=== PATIENT | female | born 1935 | race Caucasian/White ===

== ENCOUNTER 2017-05-27 07:30 | Day surgery (SDC) | payer MEDICARE, OTHER ==
--- NOTE | 2017-05-19 15:14 | HP ---
CC: Dr. Valdes from [facility] * HISTORY AND PHYSICAL: DATE OF VISIT/ENCOUNTER: 05/19/17 DATE OF SURGERY: 05/27/17 - [facility] CHIEF COMPLAINT: History of gallbladder disease and right upper quadrant abdominal pain. ATTENDING PHYSICIAN: Vicki Winters MD. (DICTATED BY JESS HAMILTON) HISTORY OF PRESENT ILLNESS: Ms. Ivan is a pleasant 81-year-old female who returned to the office today to discuss gallbladder surgery. The patient unfortunately had an acute attack of cholecystitis back in February of this year while her was hospitalized at [facility] due to heart attack. Unfortunately, the patient's eventually and during his hospitalization the patient was staying with him in the hospital in [place] for 2 months and mainly eating meals at their cafeteria. She reports having frequent attacks of right upper quadrant pain back then that has gotten progressively worse to the point she was evaluated at the emergency room in [place] and was found to have acute cholecystitis. The patient eventually was hospitalized and a cholecystotomy tube was inserted and then eventually removed back in mid February. After her , the patient continued to recover well from her recent hospitalization and was seen in the office last month to discuss possible cholecystectomy. The patient initially was seen by Dr. Chong who recommended surgery and then she was seen by Dr. Winters last week for a second opinion regarding the same issue. Given her symptoms in the past couple of months, we discussed with her proceeding with surgery which she eventually agreed upon and was seen in the office today for a preoperative evaluation. Since her last office visit, the patient has been doing relatively well. She denies any significant right upper quadrant abdominal pain, nausea, vomiting, jaundice, or changes in the bowel habits. She has been dealing with some personal issues regarding her 's but overall she has been handling very well and she is ready to proceed with surgery as outlined. She was seen by her primary care physician last week and she was deemed not needing any medical clearance. She also had some laboratory workup done the week before that and all her lab results appear to be satisfactory at this time. PAST MEDICAL HISTORY: Significant for history of renal cell carcinoma for which she had right nephrectomy in 2014 in [facility]. She also has a history of hypothyroidism, osteoarthritis, hyperlipidemia, anxiety, and as mentioned above history of acute cholecystitis that required cholecystotomy tube insertion back in January of this year. PAST SURGICAL HISTORY: Significant for hysterectomy back in 1988, hip replacement back in 2009 as well as right nephrectomy in 2015 due to history of renal cell carcinoma. She also has a history of cholecystotomy tube insertion earlier this year due to acute attack of cholecystitis. CURRENT MEDICATIONS: Include, levothyroxine 25 mcg 1-1/2 tablet p.o. daily. ALLERGIES: She is allergic to CODEINE, HYDROCODONE, IBUPROFEN, OXYCODONE, TETRACYCLINE, TERRAMYCIN, and PENICILLIN G. FAMILY HISTORY: She denies any family history of gallbladder disease. SOCIAL HISTORY: The patient is a . She lives alone. She is retired, very active in voluntary activities in the community. She has never smoked. She denies alcohol use and caffeine intake is minimal. REVIEW OF SYSTEMS: See HPI, otherwise negative. She denies any headache, dizziness, blurred vision, or double vision. No sore throat, shortness of breath, cough, or wheezing. No chest pain, palpitations, or dyspnea. She reports occasional lower back pain and arthritic aches and pains in her joint, but denies any dysuria, flank pain, hematuria, or urinary frequency. She admits to occasional right upper quadrant discomfort after food consumption, but denies any nausea, vomiting, changes in bowel habit, or changes in the color or stool of urine. No fever, chills, night sweats, or recent weight loss. PHYSICAL EXAMINATION GENERAL: She is a pleasant and healthy-appearing elderly female in no acute distress or discomfort at the time of her visit. VITALS: Revealed a blood pressure of 100/62, pulse of 80, respiration of 16, temperature of 98.3, and she weighs 148 pounds on a 5 feet 4 inches with BMI of 25. HEENT: Sclerae anicteric. PERRLA. EOMs intact. Oropharynx is pink and moist. There was no exudate. NECK: Supple. Trachea midline. No cervical adenopathy or thyromegaly. LUNGS: Clear to auscultation bilaterally. No rales, wheezing, or rhonchi noted. HEART: Regular, rate, and rhythm. Normal S1 and S2 without rubs, murmurs, or gallops. BACK: Normal curvature, no CVA tenderness. ABDOMEN: Soft, nontender, and nondistended. Old incisions at right upper quadrant from prior nephrectomy and cholecystotomy tube insertion were noted and well healed. There was no evidence of incisional hernias, masses, or lesions. No hepatosplenomegaly noted. Elliott sign was negative. EXTREMITIES: Without cyanosis, clubbing, or edema. RECTAL: Deferred at this time. NEUROLOGIC: Grossly intact. LABORATORY WORKUP: The patient had annual laboratory workup done 2 weeks ago and her CBC showed white count of 7200, hemoglobin 13.1, hematocrit 39.2, and platelets of 237. Her metabolic panel revealed sodium of 135, potassium 4.5, chloride 101, CO2 of 23, albumin 4.1, BUN 14, creatinine 1.0, and glucose of 90. Her LFTs and alk phos were essentially within normal limits and her TSH was 3.32. IMPRESSION: An elderly female with recent history of acute cholecystitis requiring cholecystotomy tube insertion and prolonged IV antibiotics who appeared to be recovering well from this episode and was seen in the office today to discuss elective cholecystectomy at a later date. PLAN/RECOMMENDATIONS: We went on and discussed with the patient proceeding a laparoscopic cholecystectomy. Surgery is scheduled to be performed by Dr. Winters on 05/27/17. The rationale, indications, risks, and benefits of surgery were discussed with her today. Risks include but not limited to infection, bleeding, or injury to adjacent structures. She also understands the risk of converting to open technique given her history of nephrectomy on the same slide and a possibility of multiple intraabdominal adhesions. She is relatively healthy for her age and was seen by her primary care physician a week prior to her office visit and she seems to have no need for medical clearance and her labs are updated at this time. I will obtain an EKG during her preadmission testing and will proceed with surgery as outlined next Tuesday. All her questions were answered and the patient was seen by Dr. Winters as well and we will plan to follow her up accordingly after surgery. JESS HAMILTON [id number]/[facility] #: [id number] JULIET
[~2017-05-27 07:30] MED LIST: Buffered Lidocaine 0.9% SYRIN* 5 ML/SYR SYRINGE INTRADERM ONE; Famotidine IV* 10 MG/ML 2 ML (20 mg) IV ONE; HYDROcodone/ACETAMIN 5-325 MG* 1 TAB PO PRN; Morphine INJ* 2 MG/ML 1 ML SYRINGE IV PRN; PROCHLORPERAZINE INJ 5 MG/ML 2 ML VIAL IV PRN; fentaNYL* 50 MCG/ML 2 ML VIAL (100 MCG VIAL) IV PRN
[2017-05-27] MEDS ORDERED: Buffered Lidocaine 0.9% SYRIN* 5 ML/SYR SYRINGE ONE (07:49)
[2017-05-27] MEDS ORDERED: Clindamycin 900 MG IVPREMIX(* 900 MG/50 ML SDV IV ONE (07:49)
[2017-05-27] MEDS ORDERED: Heparin VIAL(*) 5000 UNITS/ML VIAL (FIVE THOUSAND) ONE (07:49)
[2017-05-27] MEDS ORDERED: Famotidine IV* 10 MG/ML 2 ML (20 mg) ONE (07:49)
[2017-05-27] MEDS ORDERED: Bupivacaine 0.25% EPI 200,000* 30 ML SDV ONE (08:00)
[2017-05-27] MEDS ORDERED: fentaNYL* 50 MCG/ML 2 ML VIAL (100 MCG VIAL) ONE (08:40)
[2017-05-27] MEDS ORDERED: Atracurium* 10 MG/ML 10 ML VIAL ONE (08:41)
[2017-05-27] MEDS ORDERED: Midazolam* 1 MG/ML 2 ML VIAL (2 MG) ONE (08:41)
[2017-05-27] MEDS ORDERED: KETAMINE HCL* 50 MG/ML 10 ML VIAL ONE (08:41)
[2017-05-27] MEDS ORDERED: Propofol* 10 MG/ML 20 ML BTL IV PUSH ONE (09:19)
[2017-05-27] MEDS ORDERED: Ondansetron INJ* 2 MG/ML VIAL ONE (09:19)
[2017-05-27] MEDS ORDERED: Glycopyrrolate IV* 0.2 MG/ML 1 ML VIAL ONE (09:19)
[2017-05-27] MEDS ORDERED: Phenylephrine INJ* 10 MG/ML 1 ML VIAL (10 MG) ONE (09:19)
[2017-05-27] MEDS ORDERED: Lidocaine 2% PF * 5 ML VIAL ONE (09:19)
[2017-05-27] MEDS ORDERED: Dexamethasone IV* 4 MG/ML 1 ML (4 MG) ONE (09:19)
[2017-05-27] MEDS ORDERED: Neostigmine Methylsulfate* 2 MG/2 ML SYRINGE ONE (09:19)
[2017-05-27] MEDS ORDERED: Morphine INJ* 10 MG/ML 1 ML SYRINGE ONE (09:55)
[2017-05-27] MEDS ORDERED: ACETAMINOPHEN IVPB ONE (09:59)
[2017-05-27] MEDS ORDERED: Metoprolol Tartrate IV* 1 MG/ML 5 ML VIAL ONE (10:12)
--- NOTE | 2017-05-27 10:39 | SURGPN ---
Brief Operative Note - Surgery Procedures: 05/27/17 Op Note Pre-op dx: chronic cholecystitis Post-op dx: same Procedure: laparoscopic cholecystectomy Surgeon: Singh Asst: Manisha Anesth: general EBL: 25 cc Complications: none Abx: given pre-op SCDs on during surgery Pt. tolerated procedure well and was transferred to in a stable condition. CLFoster
[2017-05-27] MEDS ORDERED: Acetaminophen IV 1GM/100ML * 100 ML ONE (10:47)
[2017-05-27 13:00] VITALS: BP 106/53
[2017-05-27] MEDS ORDERED: PROCHLORPERAZINE INJ 5 MG/ML 2 ML VIAL ONE (13:09)
--- NOTE | 2017-05-28 13:42 | OP ---
CC: [facility]; Dr. Andre Valdes OPERATIVE REPORT: DATE OF OPERATION: 05/27/17 DATE OF : 37 SURGEON: Vicki Winters MD. CHEESE GRADER: Missy Dyer NP PRE-OP DIAGNOSIS: Cholecystitis. POST-OP DIAGNOSIS: Cholecystitis. OPERATIVE PROCEDURE: Laparoscopic cholecystectomy. INDICATIONS: Ms. Ivan is an 81-year-old woman who has had recent episodes of cholecystitis, at one point requiring cholecystostomy tube placement and she is now ready to consider definitive surgi rickey intervention. DESCRIPTION OF PROCEDURE: She was prepared for surgery and brought to the operating room. She was placed on the OR table in a supine position and given general anesthesia. The abdomen was then prep ped and draped in the usual sterile fashion. After infiltrating with local anesthetic, an infraumbi lical incision was made and subcutaneous tissue was divided bluntly. The fascia was grasped and inc ised and a 0 Biosyn stitch was placed on either side of the fascial incision. A trocar was inserted into the abdomen and the abdomen was insufflated under direct visualization. A subxiphoid port was placed after infiltrating with local anesthetic. An instrument through the subxiphoid port was the n used to take down some adhesions of omentum to the anterior abdominal wall. The gallbladder was v isualized and noted to be surrounded with adhesions of primarily omentum. The additional subcostal ports were placed after infiltrating with local anesthetic and under direct visualization. The gall bladder was grasped and elevated over the liver and taking adhesions down from the gallbladder was a ccomplished with primarily blunt dissection, with some electrocautery dissection. Ultimately, this exposed the infundibulum of the gallbladder and the cystic duct was cleared, clipped, and divided. The cystic artery was identified, cleared, clipped, and divided, and then the gallbladder was taken down from the liver bed using electrocautery. An additional tubular structure, thought to be possib ly a branch of the cystic artery was identified and clipped and divided also. This may have been si mply more adhesions. Once the gallbladder was off the liver bed, it was withdrawn from the abdomen through the subxiphoid port site and handed off as a specimen. The abdomen was then irrigated with saline and under direct visualization the ports were removed and the previously placed 0 Biosyn was used to closed the fascia of the infraumbilical incision. 4-0 Biosyn was used to close the skin of all incisions. Steri-Strips and a dry sterile dressing were applied. All sponge and instrument cou nts were correct. The patient tolerated the procedure well and was transferred to Recovery in a sta ble condition. [id number]/[facility] #: [id number]
== END 2017-05-27 13:25 | disposition home or self-care (01) ==
LOC: OR 07:30
PROVIDERS: ATTEND Surgery
DX: K80.12 Calculus of gallbladder with acute and chronic cholecystitis without obstruction (principal); Z85.528 Personal history of other malignant neoplasm of kidney; E03.9 Hypothyroidism, unspecified; M19.90 Unspecified osteoarthritis, unspecified site; E78.5 Hyperlipidemia, unspecified
CPT/HCPCS: 88304; A9270-GY; J0780; J1100; J1644; J2250; J2270; J2405; J2704; J3010

== ENCOUNTER 2019-05-29 15:20 | Emergency (ER) | payer MEDICARE, OTHER ==
--- OUTSIDE RECORDS SUMMARY | 2019-05-29 15:26 | XMS REPORT | Continuity of Care Document ---
:1935 External Reference #:[id number] Author Name Leticia Wen O.D. Address [address] [place] [address] Care Team Providers Name Role Phone Andre aVldes M.D. Primary Care Physician Unavailable Payers Date Identification Numbers Payment Provider Subscriber Policy Number: [id number] Medicare - [facility] Esther Ivan PayID: [id number] [address] [place] [address] Policy Number: [id number] [email or web address] Esther Ivan PayID: [id number] [address] [place] [address] Problems Active Problems Provider Date Seasonal allergy Onset: Basal cell carcinoma of skin Onset: Squamous blepharitis Raghav Hernandez M.D. Onset: 03/19/2016 Nuclear senile cataract Raghav Hernandez M.D. Onset: 03/19/2016 Chronic allergic conjunctivitis Raghav Hernandez M.D. Onset: 05/04/2018 Tear film insufficiency Raghav Hernandez M.D. Onset: 11/02/2018 Angular blepharoconjunctivitis Leticia Wen O.D. Onset: 02/05/2019 Pain in eye Leticia Wen O.D. 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 [employer] Work Status Part-Time Employment ETOH Use Denies alcohol use Tobacco Use Start: Unknown Patient has never smoked Recreational Drug Use Denies Drug Use Smoking Status Reviewed: 05/03/19 Patient has never smoked Allergies, Adverse Reactions, Alerts Active Allergies Reaction Severity Comments Date Codeine 03/12/2016 Tetracycline 03/12/2016 Oxycodone 03/19/2016 Penicillins 03/19/2016 Medications Active Medications SIG Qnty Indications Ordering Provider Date Erythromycin apply thin strip 2tubes H10.523 Leticia Venegas 05/03/2019 5mg/GM to all four Behzad O.DKimberly Ointment eyelid margins x every night for 2 weeks Artificial Tears as needed Leticia Venegas 05/02/2019 1.4% Harsha Wen Solution Levothyroxine Sodium Andre Valdes M.DKimberly 25mcg Tablets Multi Vitamin Daily Unknown Tablets History Medications Refresh daily both eyes Raghav Hernandez, 03/18/2016 - 1.4-0.6% Solution M.DKimberly 11/01/2018 Systane Balance Raghav Hernandez, 03/18/2016 - Restorative Formula M.D. 11/01/2018 0.6% Solution Davonte Cantor O.DKimberly - 0.2% Solution 11/01/2017 Triamcinolone Acetonide Tangoren, Ilbrahim - 0.1% A M.DKimberly 05/03/2018 Ointment Ketoconazole Tangoren, Ilbrahim - 2% Shampoo Ashli Wilburn 05/03/2018 Fluorouracil Tangoren, Ilbrahim - 5% Cream A M.DKimberly 05/03/2018 Fluocinonide Tangoren, Ilbrahim - 0.05% Solution A M.DKimberly 05/03/2018 Procedures Date Code Description Status 02/05/2019 40979 Est Patient Intermediate Exam Completed 11/02/2018 24412 Determination Of Refractive State Completed 11/02/2018 09350 Est Patient Comprehensive Exam Completed 05/04/2018 53372 Est Patient Comprehensive Exam Completed 11/03/2017 46301 Est Patient Comprehensive Exam Completed 03/19/2016 85312 New Patient Comprehensive Exam Completed 08/31/2010 31051 Determination Of Refractive State Completed 08/31/2010 34189 New Patient Comprehensive Exam Completed 02/02/2007 516 Cod Liver Oil Tablets Completed 02/02/2007 510 Eye Scrubs 30 Count Completed 02/02/2007 501 Systane PF Eye Drops 28 Count Completed 01/13/2007 91603 Est Patient Intermediate Exam Completed 03/31/2005 89044 Determination Of Refractive State Completed 03/31/2005 58160 Est Patient Comprehensive Exam Completed 03/04/2004 70977 Determination Of Refractive State Completed 03/04/2004 43413 Est Patient Comprehensive Exam Completed Plan of Treatment 05/03/2019 - Leticia Wen O.D.H25.13 Age-related nuclear cataract, bilateralComments:Smoking can increase the risk of developing or worsening any eye related disease, as well as affect your overall health. If you are a smoker , we strongly recommend that you quit.If you are not a smoker, we strongly recommend that you do not start.Follow up:1 Year Follow Up You can expect to have your eyes dilated at your next visit. If Dr. Wen orders any additional testing, it may require extra time. We recommend that you bring sunglasses, as dilation drops often make you light sensitive until they wear off. We always recommend you bring someone to drive you home if you are uncomfortable driving with your eyes dilated. If you have any questions before your next visit, feel free to call our office at .H04.123 Dry eye syndrome of bilateral lacrimal ptlqsoR21.523 Angular blepharoconjunctivitis, bilateralNew Medication:Erythromycin 5 mg/GM - apply thin strip to all four eyelid margins x every night for 2 weeks
[2019-05-29 15:49] VITALS: BP 119/77
--- NOTE | 2019-05-29 16:06 | UC ---
Skin Complaint HPI - HPI Summary HPI Summary: 83 yo female with 4 spots on her lower extr that are intensely pruritic no new soaps or detergents or med - History of Current Complaint Chief Complaint: UCRash Stated Complaint: SKIN COMPLAINT Hx Obtained From: Patient Onset/Duration: Gradual Onset, Lasting Days Timing: Constant Onset Severity: Mild Pain Intensity: 3 Pain Scale Used: 0-10 Numeric Location: Other - see image Character: Swelling, Pain, Redness, Raised Aggravating Factor(s): Nothing Alleviating Factor(s): Nothing Associated Signs & Symptoms: Negative: Nausea, Vomiting, Numbness, Thirst, Diaphoresis, Weakness, Pallor, Shivering, Difficulty Breathing, Fever, Chills, Cough, Wheezing, Chest Pain, Hoarseness, Throat Tightening, Rash, Abdominal Pain , Lightheadedness, Syncope, Drainage, Bruising, Tenderness, Red Streaks, Joint Swelling Related History: Insect Bite/Sting - ??? - Allergy/Home Medications Allergies/Adverse Reactions: Allergies Allergy/AdvReac Type Severity Reaction Status Date / Time codeine Allergy Dizziness Verified 05/29/19 15:49 hydrocodone Allergy Dizziness Verified 05/29/19 15:49 ibuprofen Allergy Pain Verified 05/29/19 15:49 oxycodone Allergy Rash Verified 05/29/19 15:49 Penicillins Allergy Rash Verified 05/29/19 15:49 teramycin Allergy Severe Anaphylatic Uncoded 05/18/18 02:02 Shock Home Medications: Home Medications Diphenhydramine HCl/Zinc Acet [Benadryl Itch Cooling [place]] 59 ml TOPICAL TID PRN 05/29/19 [History Confirmed 05/29/19] PMH/Surg Hx/FS Hx/Imm Hx Previously Healthy: Yes Endocrine History: Hypothyroidism Cancer History: Other Other Cancer History: renal - Surgical History Surgical History: Yes Surgery Procedure, Year, and Place: left hip replacement 2009. hysterectomy. left toe. tonsillectomy. Right nephrectomy June 09, 2015 - Family History Known Family History: Positive: Hypertension, Other - Cancer esophageal - father Breast cancer - Mother - Social History Alcohol Use: None Substance Use Type: None Smoking Status (MU): Never Smoked Tobacco - Immunization History Most Recent Influenza Vaccination: 2016 Review of Systems All Other Systems Reviewed And Are Negative: Yes Constitutional: Positive: Negative Skin: Positive: Rash Eyes: Positive: Negative ENT: Positive: Negative Respiratory: Positive: Negative Cardiovascular: Positive: Negative Gastrointestinal: Positive: Negative Genitourinary: Positive: Negative Neurovascular: Positive: Negative Musculoskeletal: Positive: Negative Neurological: Positive: Negative Psychological: Positive: Negative Physical Exam Triage Information Reviewed: Yes Appearance: Well-Appearing, No Pain Distress, Well-Nourished Vital Signs: Initial Vital Signs Temp 98.6 F 05/29/19 15:43 Pulse 85 05/29/19 15:43 Resp 12 05/29/19 15:43 BP 119/77 05/29/19 15:43 Pulse Ox 98 05/29/19 15:43 Vital Signs Reviewed: Yes Eyes: Positive: Conjunctiva Clear ENT: Positive: Hearing grossly normal, Uvula midline. Negative: Nasal congestion, Nasal drainage, Trismus, Hoarse voice Neck: Positive: Supple, Nontender, No Lymphadenopathy Respiratory: Positive: Lungs clear, Normal breath sounds, No respiratory distress, No accessory muscle use Cardiovascular: Positive: RRR Musculoskeletal: Positive: ROM Intact, No Edema Neurological: Positive: Alert Psychological Exam: Normal Skin Exam: Other - see image Images Front/Back of Body, Lg (Page): 1 - red papule 2 - excoriated lesion 3 - red papule 4 - red papule Course/Dx - Diagnoses Provider Diagnosis: Insect bites Discharge - Sign-Out/Discharge Documenting (check all that apply): Patient Departure All imaging exams completed and their final reports reviewed: No Studies - Discharge Plan Condition: Stable Disposition: HOME Prescriptions: Fexofenadine (NF) [Reyna (NF)] 60 mg PO Q12HR PRN #14 tab PRN Reason: Itching Triamcinolone 0.5% CREAM(NF) [Triamcinolone 0.5% CREAM*] 1 applic TOPICAL QID # 30 tube Patient Education Materials: Insect Bite or Sting (ED) Referrals: Andre Valdes MD [Primary Care Provider] - 1 Week - Billing Disposition and Condition Condition: STABLE Disposition: Home
== END 2019-05-29 16:45 | disposition home or self-care (01) ==
LOC: UCEAST 15:20
DX: S80.861A Insect bite (nonvenomous), right lower leg, initial encounter (principal); W57.XXXA Bitten or stung by nonvenomous insect and other nonvenomous arthropods, initial encounter; Y92.9 Unspecified place or not applicable; E03.9 Hypothyroidism, unspecified; Z88.5 Allergy status to narcotic agent; Z88.0 Allergy status to penicillin
CPT/HCPCS: 99211; G0463

== ENCOUNTER 2019-08-18 15:57 | Emergency (ER) | payer MEDICARE, OTHER ==
[2019-08-18 16:30] VITALS: BP 150/82
--- NOTE | 2019-08-18 16:58 | UC ---
Truncal Trauma HPI - HPI Summary HPI Summary: 83 year old woman who fell x 2 days ago, due to tripping over a lip of sidewalk , and landing gracefully on her front. Concerned about persistent pain in the right lateral rib cage, with pain which radiates to the right hip at times. Walking fairly. Pain with deep inspiration, but not short of breath. Concerned because she is scheduled for a MOHS procedure in [place] on Tuesday and is driving herself. Has not used analgesics due to problems tolerating medications. - History Of Current Complaint Chief Complaint: UCGeneralIllness Stated Complaint: RIB PAIN FROM A FALL Time Seen by Provider: 08/18/19 16:47 Hx Obtained From: Patient Onset/Duration: Sudden Onset, Lasting Days - 3 Severity Initially: Moderate Severity Currently: Moderate Pain Intensity: 8 Mechanism Of Injury: Blunt Trauma, Fall From A Standing Position Aggravating Factor(s): Movement, Deep Breathing Alleviating factor(s): Shallow Breathing Associated Signs And Symptoms: Positive: Chest Pain - at site on injury only - Allergies/Home Medications Allergies/Adverse Reactions: Allergies Allergy/AdvReac Type Severity Reaction Status Date / Time codeine Allergy Dizziness Verified 08/18/19 16:33 hydrocodone Allergy Dizziness Verified 08/18/19 16:33 ibuprofen Allergy Pain Verified 08/18/19 16:33 oxycodone Allergy Rash Verified 08/18/19 16:33 Penicillins Allergy Rash Verified 08/18/19 16:33 teramycin Allergy Severe Anaphylatic Uncoded 08/18/19 16:33 Shock PMH/Surg Hx/FS Hx/Imm Hx Previously Healthy: Yes Endocrine History: Hypothyroidism Cancer History: Other - right nephrectomy for renal cell carcinoma. 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 hysterectomy. left toe. tonsillectomy. Right nephrectomy June 09, 2015 - Family History Known Family History: Positive: Hypertension, Other - Cancer esophageal - father Breast cancer - Mother - Social History Occupation: Retired Lives: Assisted Living - apartment at [place] Alcohol Use: None Substance Use Type: None Smoking Status (MU): Never Smoked Tobacco - Immunization History Most Recent Influenza Vaccination: 2016 Review of Systems All Other Systems Reviewed And Are Negative: Yes Constitutional: Positive: Negative Respiratory: Positive: Other - pain with inspiration in right lateral chest wall Cardiovascular: Positive: Other - off and on has some lightheadedness which she attributes to low blood pressure. Clinically, has mild dizziness with position change on exam table consistent with BPPV Neurological: Positive: Negative Psychological: Positive: Negative Is Patient Immunocompromised?: No Physical Exam Triage Information Reviewed: Yes Appearance: Well-Appearing, Well-Nourished, Pain Distress - mild to moderate. Vital Signs: Initial Vital Signs Temp 98.0 F 08/18/19 16:22 Pulse 85 08/18/19 16:22 Resp 18 08/18/19 16:22 BP 150/82 08/18/19 16:22 Pulse Ox 97 08/18/19 16:22 ENT: Positive: Pharynx normal Neck: Positive: Supple, Nontender, No Lymphadenopathy Respiratory Exam: Other - tenderness right mid axillary line ribs 9-10 Respiratory: Positive: Lungs clear, Normal breath sounds Cardiovascular: Positive: RRR, No Murmur Bowel Sounds: Positive: Present Musculoskeletal Exam: Other - right hip with full rom; no tenderness of pelvic brim. Psychological Exam: Normal, Other - mildly anxious due to upcoming surgery. Diagnostics - Radiology No standard instances Radiology Interpretation Completed By: Radiologist - minimally displaced right 10th rib fracture per Dr. Lawson. Truncal Trauma Course/Dx - Course Course Of Treatment: pain control and follow up as needed. - Differential Dx/Diagnosis Differential Diagnosis/HQI/PQRI: Chest Wall Contusion, Rib Fracture Provider Diagnosis: Closed rib fracture Discharge ED - Sign-Out/Discharge Documenting (check all that apply): Patient Departure All imaging exams completed and their final reports reviewed: Yes - Discharge Plan Condition: Stable Disposition: HOME Patient Education Materials: Rib Fracture (ED) Referrals: Andre Valdes MD [Primary Care Provider] - Additional Instructions: You have a minimally displaced fracture of the right 10th rib. You can use acetaminophen for control of pain, taking up to 3000 mg per day (6 x 500mg tablets per day). Anticipate that your rib will be painful for then next 4 or 5 weeks. - Billing Disposition and Condition Condition: STABLE Disposition: Home
== END 2019-08-18 18:21 | disposition home or self-care (01) ==
LOC: UCEAST 15:57
DX: S22.31XA Fracture of one rib, right side, initial encounter for closed fracture (principal); W18.30XA Fall on same level, unspecified, initial encounter; Y92.480 Sidewalk as the place of occurrence of the external cause; Z88.5 Allergy status to narcotic agent; Z88.0 Allergy status to penicillin
CPT/HCPCS: 99211; G0463